=== PATIENT | female | born 1990 | race Two or more races ===

== ENCOUNTER 2019-11-16 01:31 | Emergency (ER) | payer OTHER ==
[~2019-11-16] VITALS: Ht 157.5 cm; Wt 81.2 kg
[2019-11-16 01:41] VITALS: Ht 157.5 cm; Wt 81.2 kg
[2019-11-16 04:08] VITALS: BP 130/89
== END 2019-11-16 04:08 | disposition home or self-care (01) ==
LOC: ED 01:31
DX: S61.305A Unspecified open wound of left ring finger with damage to nail, initial encounter (principal); Y04.0XXA Assault by unarmed brawl or fight, initial encounter; Y93.89 Activity, other specified; Y92.89 Other specified places as the place of occurrence of the external cause; Y99.8 Other external cause status; Z90.711 Acquired absence of uterus with remaining cervical stump